=== PATIENT | male | born 1945 | race Caucasian/White ===

== ENCOUNTER 2020-06-25 12:49 | Emergency (ER) | payer MEDICARE, OTHER ==
[2020-06-25] MEDS ORDERED: MORPHINE 2 MG SYG ONE (13:27)
[2020-06-25] MEDS ORDERED: ONDANSETRON 4MG INJ ONE (13:27)
[2020-06-25] MEDS ORDERED: KETAMINE 50MG/ML SYRINGE 50 MG/ML DISP.SYRIN IV ONE ×3 (14:54→15:32)
== END 2020-06-25 18:49 | disposition home or self-care (01) ==
LOC: EDH 12:49
DX: S42.91XA Fracture of right shoulder girdle, part unspecified, initial encounter for closed fracture (principal); E11.9 Type 2 diabetes mellitus without complications; E78.00 Pure hypercholesterolemia, unspecified; I10 Essential (primary) hypertension; Z72.0 Tobacco use; W18.39XA Other fall on same level, initial encounter; Y93.01 Activity, walking, marching and hiking; Y92.89 Other specified places as the place of occurrence of the external cause; Y99.8 Other external cause status
CPT/HCPCS: 23650; 73020 ×2; 73030 ×2; 73200; 96374; 96375; 99291; J2405; J3490 ×3